=== PATIENT | male | born 1955 | race Caucasian/White ===

== ENCOUNTER 2017-01-06 09:26 | Emergency (ER) | payer BC, OTHER ==
[~2017-01-06] VITALS: Ht 167.6 cm; Wt 72.5 kg
[2017-01-06 09:31] VITALS: Ht 167.6 cm; Wt 72.5 kg
[2017-01-06] MEDS ORDERED: traMADol 50 MG TAB PO ONE (10:00)
[2017-01-06 10:15] LABS: URINE BLOOD (Dip) POC 1+ (NEGATIVE)
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
[2017-01-06 12:23] LABS: ADD SCAN DIFF NO
[2017-01-06 12:28] LABS: ADD UMIC YES; URINE BILIRUBIN (Dip) 1+ (NEGATIVE); URINE BLOOD (Dip) 1+ (NEGATIVE); URINE COLOR YELLOW (YELLOW); URINE GLUCOSE (Dip) NEGATIVE (NEGATIVE); URINE KETONES (Dip) TRACE (NEGATIVE); URINE LEUKOCYTE ESTERASE (Dip) NEGATIVE (NEGATIVE); URINE NITRITE (Dip) NEGATIVE (NEGATIVE); URINE TOTAL PROTEIN (Dip) 1+ (NEGATIVE); URINE UROBILINOGEN (Dip) 0.2 E.U./dL (0.1-1.0)
[2017-01-06 12:34] LABS: BASOPHILS % 0.6 % (0.0-2.0); EOSINOPHILS # 0.3 10^3/ul (0.0-0.5); EOSINOPHILS % 4.9 % (0.0-7.0); HEMATOCRIT 38.4 % (42.0-52.0); HEMOGLOBIN 13.6 g/dl (14.0-18.0); LYMPHOCYTES # 0.9 10^3/ul (0.8-2.9); LYMPHOCYTES % 12.6 % (15.0-51.0); MEAN CORPUSCULAR HEMOGLOBIN 35.4 pg (29.0-33.0); MEAN CORPUSCULAR HGB CONC 35.4 g/dl (32.0-37.0); MEAN PLATELET VOLUME 9.9 fl (7.4-10.4); MONOCYTE # 0.8 10^3/ul (0.3-0.9); MONOCYTES % 11.2 % (0.0-11.0); NEUTROPHIL # 4.8 10^3/ul (1.6-7.5); NEUTROPHILS % 70.4 % (39.0-77.0); PLATELET COUNT 177 10^3/UL (140-415); RED BLOOD COUNT 3.84 10^6/ul (4.70-6.10); RED CELL DISTRIBUTION WIDTH 13.6 % (11.5-14.5); WHITE BLOOD COUNT 6.8 10^3/ul (4.8-10.8)
[2017-01-06] MEDS ORDERED: DICLOFENAC SODIUM 37.5 MG/ML VIAL IV STA (12:37)
[2017-01-06 12:42] LABS: BILIRUBIN,INDIRECT 0.9 mg/dl (0-1.1); BILIRUBIN,TOTAL 0.9 mg/dl (0.2-1.3); CALCIUM 9.6 mg/dl (8.4-10.2); CREATININE 1.06 mg/dl (0.61-1.24); POTASSIUM 4.4 mmol/L (3.5-5.1); TOTAL PROTEIN 7.5 g/dl (6.1-8.1)
[2017-01-06] MEDS ORDERED: SOD CHLORIDE 0.9% 100 ML ONE (12:49)
[2017-01-06] MEDS ORDERED: IOHEXOL 300MG/ML 150 ML BTL ONE (12:49)
[2017-01-06 12:52] LABS: ICTOTEST NEGATIVE (NEGATIVE)
[2017-01-06 12:55] LABS: BACTERIA,URINE MODERATE; MUCUS,URINE MANY
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
== END 2017-01-06 14:17 | disposition left against medical advice (07) ==
LOC: FTE 09:26
DX: S22.42XA Multiple fractures of ribs, left side, initial encounter for closed fracture (principal); V29.9XXA Motorcycle rider (driver) (passenger) injured in unspecified traffic accident, initial encounter
CPT/HCPCS: 36415; 71100; 71260; 72040; 80053; 81001; 83690; 85025; 93005; 96374; 99285; Q9967; 81003